=== PATIENT | female | born 1970 | race Caucasian/White ===

== ENCOUNTER → 2019-02-23 | Outpatient (CLI) | payer OTHER ==
[2019-02-23 17:36] LABS: BASOPHILS ABSOLUTE AUTO 0.02 K/mm3 (0.00-0.23); BASOPHILS PERCENT AUTO 0 % (0-2); EOSINOPHILS PERCENT AUTO 2 % (0-6); Hematocrit 37.4 % (33.0-51.0); Hemoglobin 12.7 g/dL (11.5-16.0); IMMATURE GRAN ABSOLUTE AUTO 0.02 K/mm3 (0.00-0.10); IMMATURE GRAN PERCENT AUTO 0 % (0-1); LYMPHOCYTES ABSOLUTE AUTO 3.97 K/mm3 (0.84-5.20); LYMPHOCYTES PERCENT AUTO 40 % (21-46); MONOCYTES ABSOLUTE AUTO 0.56 K/mm3 (0.16-1.47); MONOCYTES PERCENT AUTO 6 % (4-13); Mean Corpuscular HGB 32.5 pg (26.0-34.0); Mean Corpuscular Volume 96 fL (80-100); Mean Platelet Volume 9.6 fL (9.1-12.4); NEUTROPHILS ABSOLUTE AUTO 5.27 K/mm3 (1.96-9.15); NEUTROPHILS PERCENT AUTO 53 % (41-73); Platelet Count 302 K/mm3 (150-400); RDW Standard Deviation 42.3 fL (35.1-46.3); Red Blood Cell Count 3.91 M/mm3 (3.80-5.20); White Blood Cell Count 10.04 K/mm3 (4.00-11.30)
[2019-02-23 17:54] LABS: LDL/HDL RATIO 2.1
[2019-02-23 17:55] LABS: Alanine Aminotransfer (ALT/SGP 33 U/L (12-78); Albumin/Globulin Ratio 1.2 (0.8-1.8); Alk Phos 70 U/L (50-136); Anion Gap 8 mmol/L (6-16); Aspartate Aminotrans (AST/SGOT 21 U/L (12-37); Bilirubin, Total 0.3 mg/dL (0.1-1.0); Blood Urea Nitrogen 17 mg/dL (8-24); Bun/Creatinine Ratio 25.3 (12.0-20.0); CHOL/HDL RATIO 3.5; CO2, Blood 26 mmol/L (21-32); Calcium, Blood 9.4 mg/dL (8.5-10.1); Chloride, Blood 105 mmol/L (98-108); Cholesterol 232 mg/dL (50-200); Creatinine, Blood 0.67 mg/dL (0.40-1.00); Globulin, Blood 3.4 g/dL (2.2-4.0); Glomerular Filtration Rate >60 (60-); Glucose, Blood 88 mg/dL (70-99); HDL Cholesterol 66 mg/dL (>39); Low Density Lipoprotein Chol 136 mg/dL (0-110); Potassium, Blood 4.1 mmol/L (3.5-5.5); Sodium, Blood 139 mmol/L (136-145); Total Protein, Blood 7.4 g/dL (6.4-8.2); Triglycerides 148 mg/dL (30-160); Very Low Density Lipoprot Chol 29 mg/dL (6-32)
[2019-02-23 17:57] LABS: Thyroid Stimulating Hormone 0.989 uIU/mL (0.360-4.800)
== END | disposition home or self-care (01) ==
LOC: LAB 17:00 → LAB SHORT 17:00
PROVIDERS: Family Medicine
DX: N95.1 Menopausal and female climacteric states (principal); R53.83 Other fatigue; Z76.89 Persons encountering health services in other specified circumstances
CPT/HCPCS: 80053; 80061; 83001; 84443; 85025

== ENCOUNTER → 2019-04-20 | Outpatient (CLI) | payer OTHER | LOC: LAB SHORT 09:15 → LAB 09:15 | DX: N39.0 Urinary tract infection, site not specified (principal) | CPT/HCPCS: 87086 ==

== ENCOUNTER 2024-11-29 21:25 | Inpatient (IN) | payer OTHER ==
[~2024-11-29] VITALS: Ht 167.6 cm; Wt 65.0 kg
[2024-11-29 21:39] LABS: Base Excess Venous -18.7 mmol/L; Bicarbonate Venous 11.2 mmol/L (24.0-30.0); PCO2 Venous 41.9 mmHg (38-42); PO2 Venous 53.9 mmHg (38-42)
[2024-11-29 21:40] LABS: pH Blood Venous 7.06 (7.34-7.37)
[2024-11-29] MEDS ORDERED: Albuterol 2.5 MG/3 ML VIAL INH SCH ×2 (21:40→22:50)
[2024-11-29 21:44] LABS: BASOPHILS ABSOLUTE AUTO 0.09 K/mm3 (0.00-0.23); BASOPHILS PERCENT AUTO 0 % (0-2); EOSINOPHILS ABSOLUTE AUTO 0.37 K/mm3 (0.00-0.68); EOSINOPHILS PERCENT AUTO 2 % (0-6); Hematocrit 45.4 % (33.0-51.0); Hemoglobin 14.9 g/dL (11.5-16.0); IMMATURE GRAN ABSOLUTE AUTO 0.12 K/mm3 (0.00-0.10); IMMATURE GRAN PERCENT AUTO 1 % (0-1); LYMPHOCYTES ABSOLUTE AUTO 10.99 K/mm3 (0.84-5.20); LYMPHOCYTES PERCENT AUTO 55 % (21-46); MONOCYTES ABSOLUTE AUTO 0.85 K/mm3 (0.16-1.47); MONOCYTES PERCENT AUTO 4 % (4-13); Mean Corpuscular HGB Conc 32.8 g/dL (31.5-36.5); Mean Corpuscular Volume 98 fL (80-100); Mean Platelet Volume 9.5 fL (9.1-12.4); NEUTROPHILS ABSOLUTE AUTO 7.66 K/mm3 (1.96-9.15); NEUTROPHILS PERCENT AUTO 38 % (41-73); Platelet Count 372 K/mm3 (150-400); RDW Coefficient Variation 13.9 % (11.7-14.2); RDW Standard Deviation 50.1 fL (35.1-46.3); Red Blood Cell Count 4.65 M/mm3 (3.80-5.20); White Blood Cell Count 20.08 K/mm3 (4.00-11.30)
[2024-11-29 22:12] LABS: Free Thyroxine 0.69 ng/dL (0.70-1.60); Thyroid Stimulating Hormone 4.74 uIU/mL (0.360-4.800)
[2024-11-29 22:16] LABS: Albumin, Blood 3.6 g/dL (3.4-5.0); Albumin/Globulin Ratio 0.9 (0.8-1.8); Bilirubin, Total 0.3 mg/dL (0.1-1.0); Bun/Creatinine Ratio 14.1 (12.0-20.0); Calcium, Blood 8.6 mg/dL (8.5-10.1); Creatinine, Blood 0.99 mg/dL (0.40-1.00); Globulin, Blood 3.8 g/dL (2.2-4.0); Magnesium, Blood 2.3 mg/dL (1.6-2.4); Total Protein, Blood 7.4 g/dL (6.4-8.2)
[2024-11-29] MEDS ORDERED: Diazepam 5 MG / ML 2ML SYR IV ONE (22:35)
[2024-11-29 22:49] LABS: International Normalized Ratio 0.98; Prothrombin Time Results 10.5 Sec (9.7-11.5)
[2024-11-29 22:54] LABS: PCO2 Arterial 43.7 mmHg (35-45); PO2 Arterial 71.3 mmHg (80-100); pH Blood Arterial 7.31 (7.35-7.45)
[2024-11-29] MEDS ORDERED: levETIRAcetam 3,000 MG in NS 100 ML IV ONE ×2 (22:55→23:40)
[2024-11-29 23:00] LABS: CORONAVIRUS COVID-19 AG Negative (NEGATIVE); INFLUENZA A AG Negative (NEGATIVE); INFLUENZA B AG Negative (NEGATIVE)
[2024-11-29] MEDS ORDERED: CefTRIAXone Sodium 2,000 MG in NS 100 ML IV ONE (23:45)
[2024-11-30] VITALS (56 sets, daily range): BP systolic 79–112; BP diastolic 52–82
[2024-11-30 00:31] LABS: Source, Urine Clean Catch
[2024-11-30] MEDS ORDERED: Lactated Ringer's 1,000 ML IV ONE (00:40)
[2024-11-30 00:47] LABS: Appearance, Urine Clear (Clear); Bilirubin, Urine Neg (Neg); Blood, Urine 4+ (Neg); Glucose Qualitative, Urine 3+ (Neg); Ketones, Urine Neg (Neg); Leukocyte Esterase, Urine Neg (Neg); Nitrite, Urine Neg (Neg); Protein, Urine 3+ (Neg); Specific Gravity, Urine 1.015 (1.003-1.022); Urobilinogen, Urine NORM (Normal)
[2024-11-30 01:12] LABS: U Amphetamine Screen Not Detected; U Barbituate Screen DETECTED; U Benzodiazapine Screen Not Detected; U Buprenorphine Screen Not Detected; U Cannabinoids Screen Not Detected; U Cocaine Screen Not Detected; U Methadone Screen Not Detected; U Methamphetamine Screen Not Detected; U Opiates Screen Not Detected; U Oxycodone Screen Not Detected; U Phencyclidine Screen Not Detected
[2024-11-30 01:23] LABS: Color, Urine Pale Yellow (P-Yellow)
[2024-11-30 01:26] LABS: Bacteria Few /hpf; Red Blood Cells, Urine 0-2 /hpf (0-2); Squamous Epithelial Cells Few /hpf (Few); White Blood Cells, Urine 0-2 /hpf (0-5)
[2024-11-30] MEDS ORDERED: Lactated Ringer's 1,000 ML IV SCH (03:25)
[2024-11-30] MEDS ORDERED: Ondansetron HCl 2 MG / ML 2ML Vial IV PRN (03:25)
[2024-11-30] MEDS ORDERED: FLU VACC TS2024-25(6MOS UP)/PF 45 MCG/0.5 ML SYRINGE IM ONE (03:25)
[2024-11-30] MEDS ORDERED: Ondansetron 4 MG TAB PO PRN (03:25)
[2024-11-30] MEDS ORDERED: NS 1,000 ML IV SCH (03:40)
[2024-11-30] MEDS ORDERED: Albuterol 2.5 MG/3 ML VIAL INH PRN (03:40)
[2024-11-30 04:18] LABS: BASOPHILS ABSOLUTE AUTO 0.04 K/mm3 (0.00-0.23); BASOPHILS PERCENT AUTO 0 % (0-2); EOSINOPHILS ABSOLUTE AUTO 0.01 K/mm3 (0.00-0.68); EOSINOPHILS PERCENT AUTO 0 % (0-6); IMMATURE GRAN ABSOLUTE AUTO 0.13 K/mm3 (0.00-0.10); IMMATURE GRAN PERCENT AUTO 1 % (0-1); LYMPHOCYTES ABSOLUTE AUTO 2.96 K/mm3 (0.84-5.20); LYMPHOCYTES PERCENT AUTO 12 % (21-46); MONOCYTES ABSOLUTE AUTO 1.14 K/mm3 (0.16-1.47); MONOCYTES PERCENT AUTO 5 % (4-13); Mean Platelet Volume 8.9 fL (9.1-12.4); NEUTROPHILS ABSOLUTE AUTO 20.04 K/mm3 (1.96-9.15); NEUTROPHILS PERCENT AUTO 82 % (41-73); Platelet Count 296 K/mm3 (150-400); RDW Coefficient Variation 13.7 % (11.7-14.2); RDW Standard Deviation 46.4 fL (35.1-46.3); Red Blood Cell Count 4.37 M/mm3 (3.80-5.20); White Blood Cell Count 24.32 K/mm3 (4.00-11.30)
[2024-11-30] MEDS ORDERED: HYDROmorphone HCl/Pf 1MG SYR IV PRN (04:20)
[2024-11-30 04:21] LABS: Base Excess Venous -0.4 mmol/L; Bicarbonate Venous 23.8 mmol/L (24.0-30.0); PCO2 Venous 41.7 mmHg (38-42); pH Blood Venous 7.38 (7.34-7.37)
[2024-11-30] MEDS ORDERED: Azithromycin 500 MG in NS 250 ML IV SCH (04:26)
[2024-11-30 04:39] LABS: Mean Corpuscular Volume 92 fL (80-100)
[2024-11-30 04:40] LABS: Albumin, Blood 3.6 g/dL (3.4-5.0); Albumin/Globulin Ratio 1.2 (0.8-1.8); Bilirubin, Total 0.2 mg/dL (0.1-1.0); Bun/Creatinine Ratio 18.4 (12.0-20.0); Creatinine, Blood 0.82 mg/dL (0.40-1.00); Globulin, Blood 3.1 g/dL (2.2-4.0); Total Protein, Blood 6.7 g/dL (6.4-8.2)
--- NOTE | 2024-11-30 05:11 | NUR ---
PT ARRIVED AT 0345 FROM ED. PT PLEASANT, ALERT AND ORIENTED APPROPRIATELY. C/O OF ONLY DULL PAIN IN HEAD AT TIME. SKIN PINK, WARM, AND DRY. EYES PERRL. SOME WEAKNESS IN HANDS NOTED WHEN SIGNING FORM. PUREWICK IN PLACE. 2 PERIPHERAL IVS UPON ARRIVAL. NO GTTS WHEN SHE ARRIVED. ON 6LPM NC. NO RESPIRATORY DISTRESS NOTED AT TIME. SPOKE TO DR MENDEZ. RELAYED CT RESULTS SUSPECT OF [facility] AND RECOMMENDATION OF CTA. SHE HAS ORDERED MRI, COMING IN TO SEE PATIENT.
[2024-11-30] MEDS ORDERED: Acetaminophen 325 MG TABLET PO PRN (06:15)
[2024-11-30] MEDS ORDERED: NS 1,000 ML IV ONE (06:15)
[2024-11-30] MEDS ORDERED: Diazepam 5 MG / ML 2ML SYR IV PRN (08:00)
[2024-11-30 08:02] LABS: Adenovirus Not Detected (NOT DETECT); Bordetella pertussis Not Detected (NOT DETECT); Chlamydophila pneumoniae Not Detected (NOT DETECT); Coronavirus 229E Not Detected (NOT DETECT); Coronavirus HKU1 Not Detected (NOT DETECT); Coronavirus NL63 Not Detected (NOT DETECT); Coronavirus OC43 Not Detected (NOT DETECT); Human Metapneumovirus Not Detected (NOT DETECT); Human Rhinovirus/Enterovirus Not Detected (NOT DETECT); Influenza A/2009-H1 Not Detected (NOT DETECT); Influenza A/H1 Not Detected (NOT DETECT); Influenza A/H3 Not Detected (NOT DETECT); Influenza B Not Detected (NOT DETECT); Mycoplasma pneumoniae Not Detected (NOT DETECT); Parainfluenza Virus 1 Not Detected (NOT DETECT); Parainfluenza Virus 2 Not Detected (NOT DETECT); Parainfluenza Virus 3 Not Detected (NOT DETECT); Parainfluenza Virus 4 Not Detected (NOT DETECT); Respiratory Syncytial Virus Not Detected (NOT DETECT); SARS-Cov-2 (COVID-19), BioFire Not Detected (NOT DETECT)
[2024-11-30] MEDS ORDERED: CefTRIAXone Sodium 1,000 MG in NS 100 ML IV SCH (09:00)
[2024-11-30] MEDS ORDERED: FLUoxetine HCL 20 MG CAP PO SCH (09:00)
[2024-11-30] MEDS ORDERED: levETIRAcetam 1,000 MG in NS 100 ML IV SCH (09:00)
--- NOTE | 2024-11-30 09:37 | NUR ---
SPOKE WITH IN REGARDS TO MOST RECENT TROPONIN LEVEL, CONSULT CALLED FOR . PHONED AND SPOKE WITH HIM.
--- NOTE | 2024-11-30 10:14 | NUR ---
CAME TO SEE PT. ASKED ABOUT ECHO, DONE AT 0900. STATED MAY DO CATH AT SOME POINT, GET THROUGH THE HEAD MRI FIRST. AT BEDSIDE, PT MEDICATED FOR HEADACHE WITH DILAUDID.
[2024-11-30] MEDS ORDERED: Furosemide 10 MG / ML 2ML Vial IV ONE (16:45)
--- NOTE | 2024-11-30 18:08 | NUR ---
MARLY CONTINUES WITH THE HEADACHE, HERE NOW TO SEE HER. SHE DENIES ANY DEFICITS, JUST DOESN'T FEEL WELL. IV IN RIGHT WRIST CONTINUES, LASIX GIVEN PER , START OF 24 HOUR URINE COLLECTION. PUREWICK IN PLACE, SOMETIMES DOESN'T WORK. BP IMPROVING.
[2024-11-30] MEDS ORDERED: Cyclobenzaprine HCl 10 MG Tab PO PRN (18:35)
[2024-11-30] MEDS ORDERED: HydrALAZINE HCl 20 MG / ML 1ML Vial IV PRN (18:35)
[2024-11-30] MEDS ORDERED: OxyCODONE 10/Acetamin 325 TABLET PO PRN (18:55)
[2024-11-30] MEDS ORDERED: Methocarbamol 500 MG Tab PO PRN (19:40)
[2024-11-30] MEDS ORDERED: OxyCODONE HCL 5 MG TAB PO PRN (19:40)
[2024-12-01] VITALS (11 sets, daily range): BP systolic 86–120; BP diastolic 51–65
[2024-12-01 03:26] LABS: BASOPHILS ABSOLUTE AUTO 0.02 K/mm3 (0.00-0.23); BASOPHILS PERCENT AUTO 0 % (0-2); EOSINOPHILS PERCENT AUTO 1 % (0-6); Hematocrit 32.2 % (33.0-51.0); Hemoglobin 11.2 g/dL (11.5-16.0); IMMATURE GRAN ABSOLUTE AUTO 0.04 K/mm3 (0.00-0.10); IMMATURE GRAN PERCENT AUTO 0 % (0-1); LYMPHOCYTES ABSOLUTE AUTO 3.66 K/mm3 (0.84-5.20); LYMPHOCYTES PERCENT AUTO 28 % (21-46); MONOCYTES PERCENT AUTO 7 % (4-13); Mean Corpuscular HGB 32.5 pg (26.0-34.0); Mean Corpuscular HGB Conc 34.8 g/dL (31.5-36.5); Mean Corpuscular Volume 93 fL (80-100); Mean Platelet Volume 9.2 fL (9.1-12.4); NEUTROPHILS ABSOLUTE AUTO 8.28 K/mm3 (1.96-9.15); NEUTROPHILS PERCENT AUTO 64 % (41-73); Platelet Count 222 K/mm3 (150-400); RDW Coefficient Variation 14.4 % (11.7-14.2); Red Blood Cell Count 3.45 M/mm3 (3.80-5.20)
[2024-12-01 04:36] LABS: Bilirubin, Total 0.7 mg/dL (0.1-1.0); Bun/Creatinine Ratio 16.2 (12.0-20.0); Calcium, Blood 8.4 mg/dL (8.5-10.1); Creatinine, Blood 0.74 mg/dL (0.40-1.00); Globulin, Blood 2.9 g/dL (2.2-4.0); Potassium, Blood 3.7 mmol/L (3.5-5.5); Total Protein, Blood 5.9 g/dL (6.4-8.2)
--- NOTE | 2024-12-01 05:24 | NUR ---
SHIFT SUMMARY: NO OVERNIGHT EVENTS. PT PO PAIN MEDICATION BETTER THAN IV. HEADACHE IS PERSISTENT BUT MANAGEABLE AND PT HAS BEEN ABLE TO SLEEP MOST OF THE NIGHT. WEANED OFF OXYGEN AND WAS ON ROOM AIR MOST OF THE NIGHT W/O C/O SOB. BLOOD PRESSURE HAS BEEN STABLE, NO HTN ISSUES. NO C/O CHEST PAIN. HAS BEEN AT BEDSIDE ALL NIGHT.
[2024-12-01] MEDS ORDERED: Omeprazole 20 MG CapCR PO SCH (06:00)
--- NOTE | 2024-12-01 08:10 | NUR ---
ASSUMED CARE OF PATIENT AT APPROXIMATELY 0700. BEDSIDE REPORT RECEIVED FROM JOSE COOPER. PT ASLEEP BUT ROUSES TO VERBAL STIMULI DURING BEDSIDE REPORT. CONTINUOUS CARDIAC MONITORING IN PLACE SHOWS SR, BP STABLE c MAP > 65. ON RA c O2 SATURATION > 92%. PUREWICK IN PLACE, 24 HOUR URINE IN PROGRESS. AT BEDSIDE. SEE SHIFT ASSESSMENT FOR FULL DETAILS.
[2024-12-01] MEDS ORDERED: ATOR10 PO ×2 (11:02)
[2024-12-01] MEDS ORDERED: Omeprazole20 M1 PO ×2 (11:03)
[2024-12-01] MEDS ORDERED: BUTALB-ACETAMI1 EAC7 PO ×2 (11:06)
[2024-12-01] MEDS ORDERED: VEOZAH45 MG PO ×2 (11:06)
[2024-12-01] MEDS ORDERED: TOPI25 PO ×2 (11:07)
[2024-12-01] MEDS ORDERED: FLUO10 PO ×2 (11:07)
[2024-12-01] MEDS ORDERED: ALBU90OI INH ×2 (11:09)
[2024-12-01] MEDS ORDERED: Inderal 20 mg T20 MG PO ×2 (11:09)
--- NOTE | 2024-12-01 18:24 | NUR ---
SHIFT SUMMARY PT REMAINED ALERT AND ORIENTED X 4 T/O ENTIRETY OF SHIFT. ABLE TO FOLLOW COMMANDS, MAKE PURPOSEFUL MOVEMENTS, AND MAKE NEEDS KNOWN. AFEBRILE. REPORTED HEADACHE PAIN THROUGHOUT SHIFT, MEDICATED PER EMAR c GOOD BENEFIT. SBA TO BSC FOR LINE/CORD GUIDANCE. CONTINUOUS CARDIAC MONITORING IN PLACE SHOWS SR, BP STABLE. ON RA c O2 SATURATION IN 90'S. DECREASED APPETITE. NO BM, DENIES N/V. 24HR URINE PENDING. PG TO SINCERE AND PIV TO R HAND SALINE LOCKED. R FOOT XR PENDING. AT BEDSIDE, UPDATED ON POC. WILL CONTINUE TO MONITOR AND REPORT TO ONCOMING RN.
[2024-12-01] MEDS ORDERED: LevETIRAcetam 500 MG Tab PO SCH (21:00)
[2024-12-02] VITALS (14 sets, daily range): BP systolic 92–130; BP diastolic 46–75
[2024-12-02 04:29] LABS: BASOPHILS ABSOLUTE AUTO 0.04 K/mm3 (0.00-0.23); BASOPHILS PERCENT AUTO 0 % (0-2); EOSINOPHILS ABSOLUTE AUTO 0.19 K/mm3 (0.00-0.68); EOSINOPHILS PERCENT AUTO 2 % (0-6); Hematocrit 27.9 % (33.0-51.0); Hemoglobin 9.8 g/dL (11.5-16.0); IMMATURE GRAN ABSOLUTE AUTO 0.04 K/mm3 (0.00-0.10); IMMATURE GRAN PERCENT AUTO 0 % (0-1); LYMPHOCYTES ABSOLUTE AUTO 3.72 K/mm3 (0.84-5.20); LYMPHOCYTES PERCENT AUTO 31 % (21-46); MONOCYTES ABSOLUTE AUTO 0.98 K/mm3 (0.16-1.47); MONOCYTES PERCENT AUTO 8 % (4-13); Mean Corpuscular HGB 33.1 pg (26.0-34.0); Mean Corpuscular HGB Conc 35.1 g/dL (31.5-36.5); Mean Corpuscular Volume 94 fL (80-100); Mean Platelet Volume 9.1 fL (9.1-12.4); NEUTROPHILS ABSOLUTE AUTO 7.17 K/mm3 (1.96-9.15); NEUTROPHILS PERCENT AUTO 59 % (41-73); Platelet Count 193 K/mm3 (150-400); RDW Standard Deviation 48.1 fL (35.1-46.3); Red Blood Cell Count 2.96 M/mm3 (3.80-5.20); White Blood Cell Count 12.14 K/mm3 (4.00-11.30)
[2024-12-02 04:49] LABS: Bilirubin, Total 0.4 mg/dL (0.1-1.0); Bun/Creatinine Ratio 13.2 (12.0-20.0); Calcium, Blood 8.6 mg/dL (8.5-10.1); Creatinine, Blood 0.68 mg/dL (0.40-1.00)
--- NOTE | 2024-12-02 05:57 | NUR ---
SHIFT SUMMARY PATIENT SLEPT THROUGH THE SHIFT WITH SLEEPING IN CHAIR AT BEDSIDE. PATEINT ABLE TO USE CALL LIGHT AND MAKE NEEDS KNOW. PATIENT HAD TWO HEADACHES THROUGH SHIFT GAVE PAIN PRNS PER EMAR AND PATIENT WAS ABLE TO GO BACK TO SLEEP. A&O X4, LUNGS CLEAR CILATERALLY. SBP 110-130'S AND HR IN THE 70-80'S. PATIENT USES BATHROOM IN ROOM WITH STANDBY ASSIST FROM NURSES. PATIENT MOVES HER POSITION. PATIENT HAS POWERGLIDE IN SINCERE AND IS SALINE LOCKED. CALL LIGHT WITHIN REACH.
--- NOTE | 2024-12-02 07:00 | NUR ---
ASSUME CARE: I have assumed care of this patient. She is sitting upright and converses with RN during shift handoff.
[2024-12-02] MEDS ORDERED: Metoprolol Succinate 25 MG TABCR PO SCH (09:00)
[2024-12-02] MEDS ORDERED: Atorvastatin 10 MG Tab PO SCH (09:00)
[2024-12-02] MEDS ORDERED: Lisinopril 5 MG Tab PO SCH (09:00)
--- NOTE | 2024-12-02 17:40 | NUR ---
TRANSFER TO [facility]: PT ARRIVED TO [facility] AT 1728 FROM ICU VIA WHEELCHAIR. PT ARRIVES A&OX4. FOLLOWS COMMANDS AND ANSWERS QUESTIONS APPROPRIATELY. PT ON RA AND MAINTAINING O2 SATS >95%. PT PLACED ON TELE AND IS IN A SINUS RHYTHM. BLOOD PRESSURE SOFT AT 95/60, WHICH PT STATES IS NORMAL FOR HER. PT DENIES ANY COMPLAINTS AT THIS TIME AND IS NOT IN ANY DISTRESS. CALL LIGHT IN REACH AND BED IN LOW POSITION.
--- NOTE | 2024-12-02 18:18 | NUR ---
ASSUMPTION OF CARE/SHIFT SUMMARY ASSUMED CARE OF PT AT APPROX 1745. PT ALERT AND ORIENTED X4, ABLE TO FOLLOW COMMANDS AND MAKE NEEDS KNOWN. STRENGTH EQUAL BILATERALLY. BP SOFT, MAP >60. HR SR 60'S, AFEBRILE, SPO2 >98% ON ROOM AIR. LUNG SOUNDS CLEAR THROUGHOUT. RESPIRATIONS EVEN AND UNLABORED. ABD SOFT, NON TENDER, BOWEL SOUNDS +. PULSES PALPABLE. POWERGLIDE IN SINCERE, DRAWS AND FLUSHED. PT MOM AND DAUGHTER AT BEDSIDE, UPDATED ON PT PLAN OF CARE. PT ORIENTED TO ROOM AND CALL LIGHT SYSTEM, BED IN LOW, CALL LIGHT IN REACH, WILL REPORT TO ONCOMING RN.
[2024-12-02] MEDS ORDERED: Docusate Sodium 100 MG Cap PO SCH (21:00)
[2024-12-02] MEDS ORDERED: Topiramate 25 MG Tab PO SCH (21:00)
[2024-12-03] VITALS (9 sets, daily range): BP systolic 81–116; BP diastolic 46–58
[2024-12-03 03:43] LABS: BASOPHILS ABSOLUTE AUTO 0.03 K/mm3 (0.00-0.23); BASOPHILS PERCENT AUTO 0 % (0-2); EOSINOPHILS ABSOLUTE AUTO 0.23 K/mm3 (0.00-0.68); EOSINOPHILS PERCENT AUTO 2 % (0-6); Hematocrit 27.3 % (33.0-51.0); Hemoglobin 9.6 g/dL (11.5-16.0); IMMATURE GRAN ABSOLUTE AUTO 0.02 K/mm3 (0.00-0.10); IMMATURE GRAN PERCENT AUTO 0 % (0-1); LYMPHOCYTES ABSOLUTE AUTO 3.53 K/mm3 (0.84-5.20); LYMPHOCYTES PERCENT AUTO 35 % (21-46); MONOCYTES ABSOLUTE AUTO 0.76 K/mm3 (0.16-1.47); MONOCYTES PERCENT AUTO 7 % (4-13); Mean Corpuscular HGB 32.9 pg (26.0-34.0); Mean Corpuscular HGB Conc 35.2 g/dL (31.5-36.5); Mean Corpuscular Volume 94 fL (80-100); Mean Platelet Volume 9.4 fL (9.1-12.4); NEUTROPHILS ABSOLUTE AUTO 5.67 K/mm3 (1.96-9.15); NEUTROPHILS PERCENT AUTO 55 % (41-73); Platelet Count 185 K/mm3 (150-400); RDW Coefficient Variation 13.7 % (11.7-14.2); RDW Standard Deviation 47.6 fL (35.1-46.3); Red Blood Cell Count 2.92 M/mm3 (3.80-5.20); White Blood Cell Count 10.24 K/mm3 (4.00-11.30)
[2024-12-03 04:07] LABS: Bilirubin, Total 0.5 mg/dL (0.1-1.0); Bun/Creatinine Ratio 10.6 (12.0-20.0); Calcium, Blood 8.9 mg/dL (8.5-10.1); Creatinine, Blood 0.75 mg/dL (0.40-1.00); Globulin, Blood 2.9 g/dL (2.2-4.0); Potassium, Blood 3.9 mmol/L (3.5-5.5); Total Protein, Blood 5.9 g/dL (6.4-8.2)
[2024-12-03] MEDS ORDERED: Loratadine 10 MG Tab PO ONE (04:50)
--- NOTE | 2024-12-03 05:09 | NUR ---
SHIFT SUMMARY. SHIFT HAS GONE WELL, NO ACUTE CHANGES. PT AOX4, PLEASANT, COOPERATIVE WITH CARE, CALLS APPROPRIATELY, ABLE TO MAKE NEEDS KNOWN. HAS BEEN ABLE TO REST COMFORTABLY THROUGHOUT MOST OF SHIFT. PAIN HAS BEEN ADEQUATELY MANAGED VIA EMAR. VITALS HAVE REMAINED STABLE WITH MAP REMAINING >65 THROUGHOUT SHIFT. HAS BEEN RUNNING SINUS THROUGHOUT SHIFT. MAINTAINS ADEQUATE SATURATION ON ROOM AIR. STEADY 1PA TO BATHROOM. PT COMPLAINED OF NEW PERSISTENT SNEEZING/RUNNY NOSE THIS MORNING. SPOKE WITH DR. LIRIANO WHO ORDERED OT CLARITIN FOR MANAGEMENT. OTHERWISE PATIENT HAS DONE WELL. NO ACUTE NEURO CHANGES. BED LOCKED IN LOWEST POSITION. CALL LIGHT LEFT WITHIN REACH. CONTINUING TO MONITOR.
[2024-12-03] MEDS ORDERED: Empagliflozin 10 MG TAB PO SCH (09:00)
[2024-12-03] MEDS ORDERED: Lisinopril2.5 MG PO ×2 (11:59)
[2024-12-03] MEDS ORDERED: METO25ER PO ×2 (12:00)
[2024-12-03] MEDS ORDERED: OXAYDO5 M1 PO ×2 (12:01)
[2024-12-03] MEDS ORDERED: DOC250 PO ×2 (12:02)
[2024-12-03] MEDS ORDERED: JARDIANCE10 MG PO ×2 (12:03)
[2024-12-03] MEDS ORDERED: LEVE500 PO ×2 (12:03)
[2024-12-03] MEDS ORDERED: NS 250 ML IV STA (13:34)
--- NOTE | 2024-12-03 16:47 | NUR ---
SHIFT SUMMARY: PT ALERT AND ORIENTED X4, ABLE TO FOLLOW COMMANDS AND MAKE NEEDS KNOWN. STRENGTH WEAK, EQUAL BILATERALLY. HR SR 60. AFEBRILE. SPO2 >96% ON ROOM AIR. LUNG SOUNDS CLEAR THROUGHOUT. RESPIRTAIONS EVEN AND UNLABORED. ABD SOFT, NON TENDER, BOWEL SOUNDS +. PULSES PALPABLE. POWERGLIDE REMAINS IN SINCERE, DRAWS AND FLUSHES. PLAN PLANNED FOR D/C EARLIER THIS AFTERNOON, MIDSHIFT VITALS OBTAINED SHOWED MAP OF 53, PT SYMPTOMATIC SAYING "I FEEL REALLY DIZZY." CALL PLACED TO MD, 500ML SALINE BOLUS ORDERED, BP IMPROVED, MAP >65. D/C CANCELLED, WILL RE EVALUTE 12/04/24. PT AND FAMILY UPDATED ON PT PLAN OF CARE. PT FEELING BETTER THIS EVENING, UP TO SHOWER WITH PCT ASSIST. BED IN LOW, CALL LIGHT IN REACH, WILL REPORT TO ONCOMING RN.
[2024-12-04 00:18] VITALS: BP 103/60
[2024-12-04 04:09] VITALS: BP 118/63
--- NOTE | 2024-12-04 06:38 | NUR ---
PT STABLE THROUGHOUT THE SHIFT. NO CHANGES TO NEUROS. PT REMAINED AOX4, SBA W/FWW TO BR, STEADY ON FEET. VITAL SIGNS STABLE WITH BP IMPROVED FROM PREVIOUS SHIFT. PT USES CALL LIGHT APPROPRIATELY, ABLE TO MAKE NEEDS KNOWN. PT WAS MEDICATED FOR HEADACHE X1 WITH MODERATE RELIEF, MILD PRESSURE/PAIN CONSISTENTLY PRESENT.
[2024-12-04 07:28] VITALS: BP 128/65
[2024-12-04 10:02] VITALS: BP 95/53
--- NOTE | 2024-12-04 13:40 | NUR ---
DISCHARGE PT DISCHARGED AT APPROX 1300. PT & FAMILY, INCLUDING HER , ON DC INSTRUCTIONS, NEW MEDS, FOLLOW UP APPOINTMENTS NEEDED. PT AND FAMILY STATE NO FURTHER NEED FOR INSTRUCTIONS AT TIME OF DC. MEDICATED FOR PAIN PRIOR TO LEAVING. IVS REMOVED & INTACT. HARD SCRIPT FOR OXY SENT WITH THE PATIENT. WHEELED OUT BY AIDE.
[2024-12-05 01:33] LABS: CREATININE,URINE - PER 24H 1500 mg/d (500-1400); CREATININE,URINE - PER VOLUME 75 mg/dL; HOURS COLLECTED 24 hr; METANEPHRINE,UR - RATIO TO CRT 209 ug/g CRT (0-300); METANEPHRINE,URINE - PER 24H 314 ug/d (36-229); METANEPHRINE,URN - PER VOLUME 157 ug/L; NORMETANEPHRINE,U - PER VOLUME 618 ug/L; NORMETANEPHRINE,URN - PER 24H 1236 ug/d (95-650); NORMETANEPHRINE,URN/CRT RATIO 824 ug/g CRT (0-400); TOTAL VOLUME 2000 mL
== END 2024-12-04 13:12 | disposition home or self-care (01) | DRG 64 ==
LOC: ER 21:25 → ERHOLD 11-30 00:55 → ICUE 11-30 00:55 → PCU 12-02 17:25
PROVIDERS: Student in an Organized Health Care Education/Training Program; ADMIT Family Medicine
PROC: 5A09357 Assistance with Respiratory Ventilation, Less than 24 Consecutive Hours, Continuous Positive Airway Pressure (ICD-10-PCS; principal; 2024-11-30)
PROC: 4A033R1 Measurement of Arterial Saturation, Peripheral, Percutaneous Approach (ICD-10-PCS; 2024-11-30)
DX: I60.9 Nontraumatic subarachnoid hemorrhage, unspecified (principal); I21.4 Non-ST elevation (NSTEMI) myocardial infarction; I50.21 Acute systolic (congestive) heart failure; J96.01 Acute respiratory failure with hypoxia; I16.1 Hypertensive emergency; E87.1 Hypo-osmolality and hyponatremia; E87.4 Mixed disorder of acid-base balance; R73.9 Hyperglycemia, unspecified; I27.20 Pulmonary hypertension, unspecified; I34.0 Nonrheumatic mitral (valve) insufficiency; F17.210 Nicotine dependence, cigarettes, uncomplicated; I65.22 Occlusion and stenosis of left carotid artery; K21.9 Gastro-esophageal reflux disease without esophagitis; F41.9 Anxiety disorder, unspecified; G40.409 Other generalized epilepsy and epileptic syndromes, not intractable, without status epilepticus; I11.0 Hypertensive heart disease with heart failure; J45.909 Unspecified asthma, uncomplicated; Z99.81 Dependence on supplemental oxygen; Z90.710 Acquired absence of both cervix and uterus; Z90.721 Acquired absence of ovaries, unilateral
CPT/HCPCS: 0202U; 36415; 36600; 70450; 70544; 70551; 71045; 71260; 73610; 74175; 80053; 81001; 82010; 82803; 83036; 83605; 83735; 83835; 83880; 84439; 84443; 84484; 85025; 85610; 85651; 85730; 86141; 87428-QW; 93005; 93010; 93306; 93880; 93975; 94644; 94645; 94664; 94762; 96365; 96367; 97110; 97110-CQ; 97116; 97116-CQ; 97162; 97530; 99285-25; A9270; C1751; J0456; J0696; J1171; J1940; J1953; J7030; J7050; Q9967

== ENCOUNTER 2024-12-04 13:51 | Emergency (ER) | payer OTHER ==
[~2024-12-04] VITALS: Ht 157.5 cm; Wt 61.2 kg
[~2024-12-04 13:51] MED LIST: ALBU90OI INH; ATOR10 PO; BUTALB-ACETAMI1 EAC7 PO; DOC250 PO; FLUO10 PO; Inderal 20 mg T20 MG PO; JARDIANCE10 MG PO; LEVE500 PO; Lisinopril2.5 MG PO; METO25ER PO; OXAYDO5 M1 PO; Omeprazole20 M1 PO; TOPI25 PO; VEOZAH45 MG PO
[2024-12-04 15:01] LABS: BASOPHILS ABSOLUTE AUTO 0.04 K/mm3 (0.00-0.23); BASOPHILS PERCENT AUTO 1 % (0-2); EOSINOPHILS ABSOLUTE AUTO 0.34 K/mm3 (0.00-0.68); EOSINOPHILS PERCENT AUTO 4 % (0-6); Hematocrit 34.1 % (33.0-51.0); Hemoglobin 11.4 g/dL (11.5-16.0); IMMATURE GRAN ABSOLUTE AUTO 0.02 K/mm3 (0.00-0.10); IMMATURE GRAN PERCENT AUTO 0 % (0-1); LYMPHOCYTES PERCENT AUTO 34 % (21-46); MONOCYTES ABSOLUTE AUTO 0.71 K/mm3 (0.16-1.47); MONOCYTES PERCENT AUTO 8 % (4-13); Mean Corpuscular HGB 31.8 pg (26.0-34.0); Mean Corpuscular HGB Conc 33.4 g/dL (31.5-36.5); Mean Corpuscular Volume 95 fL (80-100); Mean Platelet Volume 9.6 fL (9.1-12.4); NEUTROPHILS ABSOLUTE AUTO 4.72 K/mm3 (1.96-9.15); NEUTROPHILS PERCENT AUTO 53 % (41-73); Platelet Count 265 K/mm3 (150-400); RDW Coefficient Variation 13.6 % (11.7-14.2); RDW Standard Deviation 47.1 fL (35.1-46.3); Red Blood Cell Count 3.59 M/mm3 (3.80-5.20); White Blood Cell Count 8.83 K/mm3 (4.00-11.30)
[2024-12-04 15:20] LABS: Albumin, Blood 3.4 g/dL (3.4-5.0); Albumin/Globulin Ratio 0.9 (0.8-1.8); Bilirubin, Total 0.2 mg/dL (0.1-1.0); Calcium, Blood 9.2 mg/dL (8.5-10.1); Creatinine, Blood 0.73 mg/dL (0.40-1.00); Globulin, Blood 3.7 g/dL (2.2-4.0); Total Protein, Blood 7.1 g/dL (6.4-8.2)
[2024-12-04 18:14] VITALS: BP 120/53
== END 2024-12-04 21:55 | disposition home or self-care (01) ==
LOC: ER 13:51
PROVIDERS: Physician Assistant
DX: R42 Dizziness and giddiness (principal); J45.909 Unspecified asthma, uncomplicated; I50.9 Heart failure, unspecified; Z79.899 Other long term (current) drug therapy; Z86.79 Personal history of other diseases of the circulatory system
CPT/HCPCS: 70450; 80053; 84484; 85025; 93005; 93010; 99284-25

== ENCOUNTER 2025-04-04 07:59 | Day surgery (SDC) | payer OTHER | END 2025-04-04 23:00 | disposition home or self-care (01) | LOC: CT 07:59 | DX: I11.0 Hypertensive heart disease with heart failure (principal); I50.20 Unspecified systolic (congestive) heart failure; R00.2 Palpitations; R07.9 Chest pain, unspecified; R05.8 Other specified cough; T46.4X5A Adverse effect of angiotensin-converting-enzyme inhibitors, initial encounter; I25.2 Old myocardial infarction; G40.909 Epilepsy, unspecified, not intractable, without status epilepticus | CPT/HCPCS: 75574; Q9967 ==